=== PATIENT | male | born 1945 | race Caucasian/White ===

== ENCOUNTER 2016-12-02 12:12 | Inpatient (IN) ==
[~2016-12-02 12:12] MED LIST: Furosemide 40 MG TABLET PO ONE
--- NOTE | 2016-12-02 12:26 | Emergency Department Note ---
Disposition Clinical Impression: CHF (congestive heart failure) Qualifiers: Congestive heart failure type: systolic Congestive heart failure chronicity: acute Qualified Code(s): I50.21 - Acute systolic (congestive) heart failure Disposition: Admitted As Inpatient Condition: Good Referrals: Emilio Siddiqui DO [Primary Care Provider] - Forms: ED Satisfaction Letter Time of Disposition: 16:44 Fever HPI - General Chief Complaint: ED Fever Stated Complaint: fever for 4 days "102.4" Time Seen by Provider: 12/02/16 12:20 Source: family Mode of arrival: ambulatory Limitations: no limitations Nursing Notes Reviewed: Yes Vital Signs Reviewed: Yes - History of Present Illness HPI Narrative: 71-year-old white male with a history of heart disease who presents with a four- day history of a cough productive of clear sputum and fever up to 102.5. He states he has had the fever daily for 4 days. He has been taking Tylenol. His last dose of Tylenol was yesterday. No chest pain. No vomiting or diarrhea. No leg edema. No earache or sore throat. Pt Subjective Complaint: fever Onset (ago): day(s) (4) Maximum Temperature Reported: 102.5 F Temperature Source: oral Associated symptoms: Reports: chills, cough Improves with: acetaminophen Worsens with: nothing Treatments prior to arrival fever: acetaminophen - Related Data Home Medications Medication Instructions Recorded Confirmed Albuterol Sulfate [Ventolin Hfa] 18 gm IH PRN PRN 12/02/16 12/02/16 Amlodipine Besylate 10 mg PO DAILY 12/02/16 12/02/16 Cetirizine HCl [Zyrtec] 10 mg PO DAILY 12/02/16 12/02/16 Clopidogrel Bisulfate [Plavix] 75 mg PO DAILY 12/02/16 12/02/16 Docusate [Colace] 100 mg PO DAILY 12/02/16 12/02/16 Ezetimibe [Zetia] 10 mg PO DAILY 12/02/16 12/02/16 Isosorbide MONOnitrate (24 HR) 60 mg PO DAILY 12/02/16 12/02/16 [Imdur] Lisinopril [Zestril] 10 mg PO DAILY 12/02/16 12/02/16 Metoprolol XL (24 HR) Succ [Toprol 50 mg PO DAILY 12/02/16 12/02/16 XL] Rosuvastatin [Crestor] 40 mg PO HS 12/02/16 12/02/16 Tiotropium [Spiriva] 18 mcg IH 0700 12/02/16 12/02/16 Tramadol HCl [Ultram] 50 mg PO BID PRN 12/02/16 12/02/16 Allergies Allergy/AdvReac Type Severity Reaction Status Date / Time No Known Allergies Allergy Verified 05/31/16 17:37 All systems ED: reviewed and negative except as stated. Constitutional: Reports: fever, chills Eyes: Denies: eye discharge ENT ED: Denies: ear pain, throat pain Cardiovascular: Denies: chest pain Respiratory: Reports: cough, dyspnea, sputum production Gastrointestinal: Denies: abdominal pain, nausea, vomiting, diarrhea Genitourinary: Denies: urgency, dysuria, frequency Musculoskeletal: Denies: back pain Neurological: Denies: weakness Fever PMH - Past Medical History Medical history: Reports: coronary artery disease, hyperlipidemia, hypertension , TIA Surgical history: Reports: non-contributory Psychiatric history: Reports: no psych history - Social History Smoking Status: Current every day smoker Alcohol use: Reports: none Drug use: Reports: none Physical Exam - General Limitations: no limitations General appearance: alert, in no apparent distress - Head Head exam: atraumatic, normocephalic - Eye Eye exam: Present: PERRL, EOMI. Absent: scleral icterus, conjunctival injection - ENT ENT exam: normal oropharynx, mucous membranes moist, TM's normal bilaterally - Neck Neck exam: Present: normal inspection, full ROM, trachea midline. Absent: lymphadenopathy - Respiratory Respiratory exam: Present: normal lung sounds bilaterally. Absent: respiratory distress, wheezes - Cardiovascular Cardiovascular exam: Present: regular rate, normal rhythm, systolic murmur (206 at the apex). Absent: gallop - Abdominal Exam Abdominal exam: Present: soft, Non-Tender, normal bowel sounds. Absent: organomegaly, mass - Extremities Exam Extremities exam: Present: normal inspection, full ROM, normal capillary refill. Absent: pedal edema, joint swelling, calf tenderness - Neurological Exam Neurological exam: Present: alert, oriented X3, normal gait. Absent: motor sensory deficit - Psychiatric Psychiatric exam: Present: normal affect, normal mood - Skin Skin exam: Present: warm, dry, intact, normal color Course Vital Signs Temperature 97.5 F L 12/02/16 12:13 Pulse Rate 72 12/02/16 12:13 Respiratory Rate 22 12/02/16 12:13 Blood Pressure 140/75 12/02/16 12:13 O2 Sat by Pulse Oximetry 96 12/02/16 12:13 Temperature 97.5 F L 12/02/16 12:13 Pulse Rate 66 12/02/16 16:40 Respiratory Rate 18 12/02/16 16:40 Blood Pressure 146/79 12/02/16 16:40 O2 Sat by Pulse Oximetry 98 12/02/16 16:40 Oxygen Delivery Oxygen Delivery Room Air Fever - MDM Narrative Medical decision making narrative: He has no fever here. His BNP is significantly elevated. He has had a cough productive of some white phlegm. This is likely congestive heart failure. He was given some Lasix. I talk with the patient about observation and further evaluation. He is agreeable. I spoke with Dr. Kruse, he has accepted the patient for observation admission. - Differential Diagnosis Likely: fever of occult origin, community acquired pneumonia, pyelonephritis, viral infection, sepsis, influenza - Lab Data Lab results reviewed: Yes I reviewed the patient's lab results. Result diagrams: 12/02/16 12:43 12/02/16 12:43 Lab Results 12/02/16 12/02/16 12/02/16 Range/Units 12:43 12:43 12:43 WBC 6.8 (4.3-11.1) K/mcL RBC 4.82 (4.19-5.50) M/mcL Hgb 14.6 (12.9-16.9) g/dL Hct 41.8 (37.5-50.1) % MCV 86.7 (83.0-100.0) fL MCH 30.3 (28.0-33.3) pg MCHC 34.9 (31.6-35.5) g/dL RDW 13.2 (11.5-14.5) % Plt Count 175 (140-400) K/mcL MPV 11.4 (9.4-12.4) fL Immature Gran % 0.6 (0-4) % Seg Neutrophils % 61.1 % Lymphocytes % 22.6 % Monocytes % 9.4 % Eosinophils % 5.9 % Basophils % 0.4 % Neutrophils # 4.2 (1.6-8.9) K/mcL Lymphocytes # 1.5 (0.6-4.6) K/mcL Monocytes # 0.6 (0.0-1.3) K/mcL Eosinophils # 0.4 (0.0-0.6) K/mcL Basophils # 0.0 (0.0-0.2) K/mcL Sodium 136 (136-145) mEq/L Potassium 3.5 (3.5-4.5) mEq/L Chloride 103 (98-109) mEq/L Carbon Dioxide 24 (19-29) mEq/L BUN 13 (8-26) mg/dL Creatinine 0.98 (0.72-1.25) mg/dL Est GFR ( Amer) > 60 (> 60) Est GFR (Non-Af Amer) > 60 (> 60) BUN/Creatinine Ratio 13 (6-26) Glucose 122 H (70-99) mg/dL Calculated Osmolality 283 (280-300) Calcium 8.5 L (8.6-10.8) mg/dL Total Bilirubin 0.9 (0.2-1.2) mg/dL AST 39 H (5-34) Units/L ALT 37 (0-55) Units/L Alkaline Phosphatase 123 (38-126) Units/L Troponin I 0.05 H* (0-0.03) ng/mL B-Natriuretic Peptide (0-100) pg/mL Serum Total Protein 6.3 (6.0-8.3) g/dL Albumin 2.9 L (3.5-5.0) g/dL Globulin 3.4 (2.4-3.5) g/dL Albumin/Globulin Ratio 0.9 L (1.1-2.2) Urine Color (Yellow) Urine Clarity (Clear) Urine pH (5.0-8.0) pH Units Ur Specific [place] (1.010-1.025) Urine Protein (Neg-Trace) mg/dL Urine Glucose (UA) (Normal) mg/dL Urine Ketones (Negative) mg/dL Urine Blood (Negative) Urine Nitrite (Negative) Urine Bilirubin (Negative) Urine Urobilinogen (Normal) mg/dL Ur Leukocyte Esterase (Negative) Urine Microscopic RBC (0-3) per hpf Urine Microscopic WBC (0-3) per hpf Ur Squamous Epith Cells (None-Few) per lpf Urine Bacteria (None-Few) per hpf Ur Culture Indicated? (NO) 12/02/16 12/02/16 12/02/16 Range/Units 12:43 13:45 14:45 WBC (4.3-11.1) K/mcL RBC (4.19-5.50) M/mcL Hgb (12.9-16.9) g/dL Hct (37.5-50.1) % MCV (83.0-100.0) fL MCH (28.0-33.3) pg MCHC (31.6-35.5) g/dL RDW (11.5-14.5) % Plt Count (140-400) K/mcL MPV (9.4-12.4) fL Immature Gran % (0-4) % Seg Neutrophils % % Lymphocytes % % Monocytes % % Eosinophils % % Basophils % % Neutrophils # (1.6-8.9) K/mcL Lymphocytes # (0.6-4.6) K/mcL Monocytes # (0.0-1.3) K/mcL Eosinophils # (0.0-0.6) K/mcL Basophils # (0.0-0.2) K/mcL Sodium (136-145) mEq/L Potassium (3.5-4.5) mEq/L Chloride (98-109) mEq/L Carbon Dioxide (19-29) mEq/L BUN (8-26) mg/dL Creatinine (0.72-1.25) mg/dL Est GFR ( Amer) (> 60) Est GFR (Non-Af Amer) (> 60) BUN/Creatinine Ratio (6-26) Glucose (70-99) mg/dL Calculated Osmolality (280-300) Calcium (8.6-10.8) mg/dL Total Bilirubin (0.2-1.2) mg/dL AST (5-34) Units/L ALT (0-55) Units/L Alkaline Phosphatase (38-126) Units/L Troponin I 0.04 H* (0-0.03) ng/mL B-Natriuretic Peptide 2137 H (0-100) pg/mL Serum Total Protein (6.0-8.3) g/dL Albumin (3.5-5.0) g/dL Globulin (2.4-3.5) g/dL Albumin/Globulin Ratio (1.1-2.2) Urine Color Yellow (Yellow) Urine Clarity Clear (Clear) Urine pH 6.5 (5.0-8.0) pH Units Ur Specific [place] 1.010 (1.010-1.025) Urine Protein 100 H (Neg-Trace) mg/dL Urine Glucose (UA) Normal (Normal) mg/dL Urine Ketones Negative (Negative) mg/dL Urine Blood Trace-intact H (Negative) Urine Nitrite Negative (Negative) Urine Bilirubin Negative (Negative) Urine Urobilinogen Normal (Normal) mg/dL Ur Leukocyte Esterase Negative (Negative) Urine Microscopic RBC 0-3 (0-3) per hpf Urine Microscopic WBC 0-3 (0-3) per hpf Ur Squamous Epith Cells Few (None-Few) per lpf Urine Bacteria Few (None-Few) per hpf Ur Culture Indicated? NO (NO) - Radiology Data Radiology results reviewed: Yes I reviewed the patient's radiology results. Impressions Chest X-Ray 12/02/16 12:22 IMPRESSION: Stable appearance of the chest without acute cardiopulmonary process identified. D/ / Ramon Ly MD / Ramon Ly MD Interpreting Provider: Ramon Ly MD - EKG Data EKG attestation: Yes I reviewed and interpreted this EKG. EKG results narrative: Sinus rhythm, rate of 68, first-degree AV block, left ventricular hypertrophy. Rhythm strip shows sinus rhythm with rate of 68, IA intervals 208 ms, QRS 100 ms with no other ectopy as interpreted by me. This is compared to a tracing dated 05/24/15, no significant change.
[2016-12-02 12:51] LABS: Basophils % 0.4 %; Eosinophils # 0.4 K/mcL (0.0-0.6); Eosinophils % 5.9 %; Hematocrit 41.8 % (37.5-50.1); Hemoglobin 14.6 g/dL (12.9-16.9); Immature Granulocytes % 0.6 % (0-4); Lymphocytes # 1.5 K/mcL (0.6-4.6); Lymphocytes % 22.6 %; Mean Corpuscular HGB Conc 34.9 g/dL (31.6-35.5); Mean Corpuscular Hemoglobin 30.3 pg (28.0-33.3); Mean Corpuscular Volume 86.7 fL (83.0-100.0); Mean Platelet Volume 11.4 fL (9.4-12.4); Monocytes # 0.6 K/mcL (0.0-1.3); Monocytes % 9.4 %; Neutrophils # 4.2 K/mcL (1.6-8.9); Platelet Count 175 K/mcL (140-400); Red Blood Count 4.82 M/mcL (4.19-5.50); Red Cell Distribution Width 13.2 % (11.5-14.5); Segmented Neutrophils % 61.1 %
[2016-12-02 13:08] LABS: Alanine Aminotransferase 37 Units/L (0-55); Albumin 2.9 g/dL (3.5-5.0); Albumin/Globulin Ratio 0.9 (1.1-2.2); Alkaline Phosphatase 123 Units/L (38-126); Aspartate Amino Transferase 39 Units/L (5-34); BUN/Creatinine Ratio 13 (6-26); Bilirubin,Total 0.9 mg/dL (0.2-1.2); Blood Urea Nitrogen 13 mg/dL (8-26); Calcium 8.5 mg/dL (8.6-10.8); Carbon Dioxide 24 mEq/L (19-29); Chloride 103 mEq/L (98-109); Globulin 3.4 g/dL (2.4-3.5); Glucose 122 mg/dL (70-99); Osmolality,Calculated 283 (280-300); Potassium 3.5 mEq/L (3.5-4.5); Sodium 136 mEq/L (136-145); Total Protein 6.3 g/dL (6.0-8.3); eGFR For African Americans > 60 (> 60); eGFR For Non-African Americans > 60 (> 60)
[2016-12-02] MEDS ORDERED: Furosemide 20 MG/2 ML VIAL IVP ONE ×2 (13:35→16:48)
[2016-12-02 13:49] LABS: Bilirubin,Urine Negative (Negative); Blood,Urine Trace-intact (Negative); Clarity,Urine Clear (Clear); Color,Urine Yellow (Yellow); Glucose,Urine (UA) Normal (Normal); Ketones,Urine Negative (Negative); Leukocyte Esterase,Urine Negative (Negative); Nitrite,Urine Negative (Negative); PH,Urine 6.5 pH Units (5.0-8.0); Protein,Urine 100 mg/dL (Neg-Trace); Urobilinogen,Urine Normal (Normal)
[2016-12-02 14:09] LABS: Bacteria,Urine Few per hpf (None-Few); RBC,Urine 0-3 per hpf (0-3); Squamous Epithelial Cell,Urine Few per lpf (None-Few); WBC,Urine 0-3 per hpf (0-3)
[2016-12-02] MEDS ORDERED: traMADol 50 MG TABLET PO PRN (17:15)
[2016-12-02] MEDS ORDERED: Naloxone 0.4 MG/ML INJ IVP PRN (17:15)
[2016-12-03] MEDS ORDERED: *HR* Enoxaparin 30 MG/0.3 ML SYRINGE SQ SCH (06:00)
[2016-12-03] MEDS: Tiotropium 18 MCG inhalation IH SCH (07:24)
[2016-12-03] MEDS: amLODIPine 5 MG TABLET PO SCH (08:59)
[2016-12-03] MEDS: Loratadine 10 MG TABLET PO SCH (08:59)
[2016-12-03] MEDS: Furosemide 40 MG/4 ML VIAL IVP SCH (09:00)
[2016-12-03] MEDS: Metoprolol XL (24 HR) Succ 50 MG TAB.ER.24H PO SCH (09:00)
[2016-12-03] MEDS ORDERED: Isosorbide MONOnitrate (24 HR) 60 MG TAB.ER.24H PO SCH ×2 (09:00→12:03)
[2016-12-03] MEDS: (Ezetimibe [Zetia] 10 MG) PO SCH (09:00)
[2016-12-03] MEDS ORDERED: ALPRAZolam 0.5 MG TABLET PO ONE (11:54)
--- NOTE | 2016-12-03 12:05 | Internal Med History&Physical ---
Date of Encounter: 12/03/16 Time of Encounter: 11:25 Assessment and Plan (1) CHF (congestive heart failure) Current visit: Yes Status: Acute He has been started on IV Lasix in addition to continuance of home cardiac medications. Will order echocardiogram. Qualifiers: Congestive heart failure type: unspecified congestive heart failure type Congestive heart failure chronicity: acute Qualified Code(s): I50.9 - Heart failure, unspecified (2) COPD (chronic obstructive pulmonary disease) Current visit: Yes Status: Chronic Will order chest CT to follow-up on nodules seen on May [address] CT. Qualifiers: COPD type: unspecified COPD Qualified Code(s): J44.9 - Chronic obstructive pulmonary disease, unspecified Internal Medicine - H&P: HPI Chief complaint: Fever, cough, dyspnea Admitted From: Home Plans for Post Hospital Care: Home History of present illness: Mr. Little is a 71 year old male who came to emergency room stating he had fever , dyspnea and minimally productive cough onset approximately November 22. There was no chest pain associated. He initially did not want to seek medical attention but when symptoms did not improve he agreed to come to the hospital on December 02. He was evaluated and found have evidence of heart failure. He was admitted to [facility] floor for ongoing care needs. He denies knowledge of past heart failure. His cardiovascular history is significant for hypertension and known ASHD with coronary stents placed 2006. He has not had follow-up stress test or heart catheter since then. He has not had DVT or pulmonary embolus. He does not check his blood pressure at home. He had AAA repair 2014 at [facility]. Respiratory history is significant for having smoked from age [age] up to 2 packs per day. He has been diagnosed with COPD/emphysema and has oxygen at home which he states he only uses symptomatically. Past Med Surg Social Fam HX - Past Medical History Medical history: aortic aneurysm, CHF, coronary artery disease, hyperlipidemia, hypertension, TIA Psychiatric history: no psych history - Past Surgical History Surgical History: non-contributory - Social History Smoking Status: Former smoker Smokeless Tobacco Status: No Alcohol use: none Drug use: none Internal Medicine - H&P: Meds Albuterol Sulfate [Ventolin Hfa] 18 gm IH PRN PRN 12/02/16 [History] Amlodipine Besylate 10 mg PO DAILY 12/02/16 [History] Cetirizine HCl [Zyrtec] 10 mg PO DAILY 12/02/16 [History] Clopidogrel Bisulfate [Plavix] 75 mg PO DAILY 12/02/16 [History] Docusate [Colace] 100 mg PO DAILY 12/02/16 [History] Ezetimibe [Zetia] 10 mg PO DAILY 12/02/16 [History] Isosorbide MONOnitrate (24 HR) [Imdur] 60 mg PO DAILY 12/02/16 [History] Lisinopril [Zestril] 10 mg PO DAILY 12/02/16 [History] Metoprolol XL (24 HR) Succ [Toprol XL] 50 mg PO DAILY 12/02/16 [History] Rosuvastatin [Crestor] 40 mg PO HS 12/02/16 [History] Tiotropium [Spiriva] 18 mcg IH 0700 12/02/16 [History] Tramadol HCl [Ultram] 50 mg PO BID PRN 12/02/16 [History] 3 Allergy/AdvReac Type Severity Reaction Status Date / Time No Known Allergies Allergy Verified 05/31/16 17:37 All Systems PM: A 10-system review of systems was performed and is negative for pertinent findings except as documented above in the HPI. 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 He denies seizures Endocrine: He has hyperlipidemia but denies diabetes or thyroid disease Hematology/oncology: Denies blood disorders cancers or anemia Psychiatric: He has depression but denies anxiety or other mental health issues Musk skeletal: He denies arthritis gout or other bone joint or muscle disorders. - Constitutional Vitals: Temp Pulse Resp BP Pulse Ox 97.7 F 68 18 134/77 95 12/03/16 10:31 12/03/16 10:31 12/03/16 10:31 12/03/16 10:31 12/03/16 10:31 Exam: Gen.: He is a well-developed well-nourished male who appears in no acute distress. He denies pain or dyspnea HEENT: Head is atraumatic and normocephalic. Eyes: EOMI. There is no scleral icterus. He has bilateral arcus senilis. Mouth: Mucosa is moist. Neck: Supple and nontender. There is no thyromegaly or adenopathy noted. Heart: Regular without murmurs gallops or ectopics Lungs: No wheezes or crackles are heard. Abdomen: Soft and nontender. No masses or guarding are noted. He has a well- healed longitudinal lower midline scar from previous AAA repair. Extremities: There is no cyanosis edema or clubbing noted. Dorsalis pedis and posterior tibial pulses are trace palpable bilaterally. Neurologic: Mental status: He is talkative and a good historian. Cranial nerves : Smile is symmetric. Forehead wrinkles bilaterally. Tongue protrudes midline. EOMI. He is hard of hearing. Motor: There is no pronator drift. Cerebellar: Finger to nose is intact bilaterally. Skin: Warm and dry Internal Med - H&P Results - Labs CBC & Chem 7: 12/02/16 12:43 12/02/16 12:43 Labs: Cardiac Enzymes 12/02/16 12/02/16 12/03/16 Range/Units 17:47 22:58 05:10 Troponin I 0.04 H* 0.04 H* 0.04 H* (0-0.03) ng/mL
--- NOTE | 2016-12-03 18:02 | Electrocardiograph Report ---
[address] [id number] Test Date: 2016-12-02 Pat Name: Koby Little Department: [id number] Room: [facility] Gender: M Rn Security: [id number] Requested By: Manfred Fields Order Number: [id number] Reading MD: Lucas Velazquez MD Measurements Intervals [place] Rate: 68 P: 66 GA: 208 QRS: -12 QRSD: 100 T: 159 QT: 392 QTc: 410 Interpretive Statements SINUS RHYTHM LEFT VENTRICULAR HYPERTROPHY AND ST-T CHANGE Electronically Signed On 12-03-2016 18:00:10 EDT by Lucas Velazquez MD
[2016-12-04] MEDS ORDERED: *HR* Enoxaparin 40 MG/0.4 ML SYRINGE SQ SCH (06:00)
[2016-12-04] MEDS: Tiotropium 18 MCG inhalation IH SCH (08:27)
[2016-12-04] MEDS: (Ezetimibe [Zetia] 10 MG) PO SCH (09:35)
[2016-12-04 09:50] VITALS: BP 112/77
[2016-12-04] MEDS: Loratadine 10 MG TABLET PO SCH (09:50)
[2016-12-04] MEDS: amLODIPine 5 MG TABLET PO SCH (10:00)
[2016-12-04] MEDS: Metoprolol XL (24 HR) Succ 50 MG TAB.ER.24H PO SCH (10:01)
[2016-12-04] MEDS: Furosemide 40 MG/4 ML VIAL IVP SCH (10:02)
--- NOTE | 2016-12-04 10:04 | Discharge Summary ---
Date of Encounter: 12/04/16 Time of Encounter: 09:55 - Discharge Diagnosis (1) CHF (congestive heart failure) Priority: Primary Status: Acute Qualifiers: Congestive heart failure type: unspecified congestive heart failure type Congestive heart failure chronicity: acute Qualified Code(s): I50.9 - Heart failure, unspecified (2) COPD (chronic obstructive pulmonary disease) Priority: Secondary Status: Chronic Qualifiers: COPD type: unspecified COPD Qualified Code(s): J44.9 - Chronic obstructive pulmonary disease, unspecified - Discharge Medications Prescriptions: Bumetanide [Bumex] 1 mg PO DAILY #30 tablet Potassium Chloride 10 meq PO DAILY #30 tab.er.prt Home Medications: Albuterol Sulfate [Ventolin Hfa] 18 gm IH PRN PRN 12/02/16 [History] Clopidogrel Bisulfate [Plavix] 75 mg PO DAILY 12/02/16 [History] Docusate [Colace] 100 mg PO DAILY 12/02/16 [History] Ezetimibe [Zetia] 10 mg PO DAILY 12/02/16 [History] Isosorbide MONOnitrate (24 HR) [Imdur] 60 mg PO DAILY 12/02/16 [History] Lisinopril [Zestril] 10 mg PO DAILY 12/02/16 [History] Metoprolol XL (24 HR) Succ [Toprol Xl] 50 mg PO DAILY 12/02/16 [History] Rosuvastatin [Crestor] 40 mg PO HS 12/02/16 [History] Tiotropium [Spiriva] 18 mcg IH 0700 12/02/16 [History] Tramadol HCl [Ultram] 50 mg PO BID PRN 12/02/16 [History] Bumetanide [Bumex] 1 mg PO DAILY #30 tablet 12/04/16 [Rx] Cetirizine HCl [Zyrtec] 10 mg PO DAILY PRN #0 12/04/16 [Rx] Potassium Chloride 10 meq PO DAILY #30 tab.er.prt 12/04/16 [Rx] Allergies/Adverse Reactions: 3 Allergy/AdvReac Type Severity Reaction Status Date / Time No Known Allergies Allergy Verified 05/31/16 17:37 Date of admission: 12/03/16 15:23 Primary care physician: Emilio Siddiqui DO - Patient Status Disposition: Home, Self-Care Condition: Good Overall status at discharge: patient is progressing back to baseline - Discharge Instructions Follow Up With: Emilio Siddiqui DO [Primary Care Provider] - 1 week - Diet and Activity Activity: resume usual activities as tolerated Diet: advance to your usual diet Hospital course: Mr. Little is a 71 year old male who came to emergency room stating he had fever , dyspnea and minimally productive cough onset approximately November 22. There was no chest pain associated. He initially did not want to seek medical attention but when symptoms did not improve he agreed to come to the hospital on December 02. He was evaluated and found have evidence of heart failure. He was admitted to [facility] for ongoing care needs. Initial orders were written by the emergency room physician. I saw him on December 03 and performed the history and physical. He was started on IV Lasix by the emergency room physician. Home medications were also continued. An echocardiogram was ordered with report pending at time of this dictation. Chest CT was done to further evaluate and follow-up on nodules seen on May [address] There were multiple scattered noncalcified pulmonary nodules bilaterally unchanged from 06/03/2015. Repeat CT in 6 months was recommended. He had symptomatic improvement and felt back to his baseline when I saw him on December 04. He wished to be discharged home which I felt was reasonable. He will follow with his PCP Dr. Emilio Siddiqui within 1 week. Amlodipine will be discontinued because of borderline hypotension. He will be placed on Bumex and potassium for heart failure. - Time Spent with Patient Total time spent providing and/or coordinating discharge services: - Constitutional Vitals: Temp Pulse Resp BP Pulse Ox 98 F 74 18 112/77 96 12/04/16 06:40 12/04/16 09:49 12/04/16 06:40 12/04/16 09:49 12/04/16 09:49
== END 2016-12-04 10:59 | disposition home or self-care (01) | DRG 293 ==
LOC: EMEROOPIK 12:12 → INPPIK 12:12
PROVIDERS: ADMIT Internal Medicine; ATTEND Internal Medicine